=== PATIENT | male | born 1995 | race Caucasian/White ===

== ENCOUNTER 2024-09-02 08:58 | Outpatient (CLI) | payer OTHER | END 2024-09-02 08:59 | disposition home or self-care (01) | LOC: EDBD 08:58 → SCSRAD 08:58 | PROVIDERS: ATTEND Family Medicine | DX: R76.12 Nonspecific reaction to cell mediated immunity measurement of gamma interferon antigen response without active tuberculosis (principal) | CPT/HCPCS: 71046 ==